=== PATIENT | female | born 1985 | race Caucasian/White ===

== ENCOUNTER 2019-09-12 07:24 | Outpatient (CLI) | payer OTHER | END 2019-09-12 08:15 | disposition home or self-care (01) | LOC: OBS/DEL 07:24 → NST 07:24 | DX: Z34.83 Encounter for supervision of other normal pregnancy, third trimester (principal) ==

== ENCOUNTER 2019-09-28 13:15 | Inpatient (IN) | payer OTHER ==
[~2019-09-28] VITALS: Ht 180.3 cm; Wt 3.2 kg
[2019-10-02] MEDS ORDERED: LEVO-T25 MCG PO (07:57)
[2019-10-02] MEDS ORDERED: OBSTETRIX ONE1 EACH PO (07:57)
[2019-10-02] MEDS ORDERED: OBSTETRIX DHA1 EACH PO (07:57)
== END 2019-10-03 09:33 | disposition home or self-care (01) | DRG 788 ==
LOC: LDR 13:15 → OB/GYN 09-29 16:46
PROVIDERS: ADMIT Obstetrics & Gynecology
PROC: 3E0P7VZ Introduction of Hormone into Female Reproductive, Via Natural or Artificial Opening (ICD-10-PCS; 2019-09-29)
PROC: 3E033VJ Introduction of Other Hormone into Peripheral Vein, Percutaneous Approach (ICD-10-PCS; 2019-09-29)
PROC: 4A1HXCZ Monitoring of Products of Conception, Cardiac Rate, External Approach (ICD-10-PCS; 2019-09-29)
PROC: 10D00Z1 Extraction of Products of Conception, Low, Open Approach (ICD-10-PCS; principal; 2019-09-30 11:00)
DX: O82 Encounter for cesarean delivery without indication (principal); O61.0 Failed medical induction of labor; Z3A.40 40 weeks gestation of pregnancy; Z37.0 Single live birth

== ENCOUNTER 2019-09-29 10:19 | Outpatient (CLI) | payer OTHER | END 2019-09-29 16:48 | disposition still patient (30) | LOC: OBS/DEL 10:19 | DX: O47.1 False labor at or after 37 completed weeks of gestation (principal) ==

== ENCOUNTER 2020-03-13 10:16 | Emergency (ER) | payer OTHER ==
[~2020-03-13] VITALS: Ht 154.9 cm; Wt 99.8 kg
[~2020-03-13 10:16] MED LIST: LEVO-T25 MCG PO; OBSTETRIX DHA1 EACH PO; OBSTETRIX ONE1 EACH PO
[2020-03-13] MEDS ORDERED: LECITHIN1200 MG (10:26)
[2020-03-13] MEDS ORDERED: VITAMIN C500 M1 (10:27)
[2020-03-13] MEDS ORDERED: ZIANA GEL30 GM (10:31)
[2020-03-13] MEDS ORDERED: ZITHROMAX500 MG PO (14:57)
== END 2020-03-13 16:45 | disposition home or self-care (01) ==
LOC: ER 10:16
DX: K59.09 Other constipation (principal); R10.32 Left lower quadrant pain

== ENCOUNTER 2022-01-18 12:35 | Emergency (ER) | payer OTHER ==
[~2022-01-18] VITALS: Ht 154.9 cm; Wt 104.3 kg
[~2022-01-18 12:35] MED LIST changes: +LECITHIN1200 MG; +VITAMIN C500 M1; +ZIANA GEL30 GM; +ZITHROMAX500 MG PO
[2022-01-18] MEDS ORDERED: BUPROPION HCL200 M1 PO (12:47)
[2022-01-18] MEDS ORDERED: PYRIDIUM DS200 MG PO (16:45)
== END 2022-01-18 17:00 | disposition home or self-care (01) ==
LOC: ER 12:35
DX: N39.0 Urinary tract infection, site not specified (principal)